=== PATIENT | male | born 1990 | race Caucasian/White ===

== ENCOUNTER 2019-01-31 03:37 | Emergency (ER) | payer MEDICAID, SELFPAY ==
[2019-01-31 03:39] VITALS: BP 129/81; PULSE 91; RESP 16; TEMP 36.8; O2SAT 97; BMI 26.3
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
--- NOTE | 2019-01-31 04:01 | ED.DEP ---
ED Disposition - Plan for ED Patient: Instructions: Anxiety Reaction Prescriptions: Lorazepam [Ativan] 1 mg PO TID #10 tab Prescription Printed Referrals: Anjali Estrella MD [Primary Care Provider] - [facility] [GROUP OF PHYSICIANS] -
[2019-01-31 05:38] VITALS: BP 113/77; PULSE 88; RESP 16; O2SAT 98
== END 2019-01-31 05:38 | disposition home or self-care (01) ==
PROVIDERS: Emergency Provider Emergency Medicine; Family Provider Pediatrics; PCP Pediatrics
DX: F41.9 Anxiety disorder, unspecified (principal)
CPT/HCPCS: 99284